=== PATIENT | female | born 1995 | race African-American/Black ===

== ENCOUNTER 2023-08-18 00:38 | Emergency (ER) | payer OTHER ==
[2023-08-18 00:44] VITALS: BMI 37.2
[2023-08-18 03:03] LABS: HEMATOCRIT 34.4 % (32.4-45.2); HEMOGLOBIN 11.5 GM/dL (10.7-15.3); MCH 27.3 pg (25.7-33.7); MCHC 33.4 g/dl (32.0-36.0); MEAN CELL VOLUME 81.9 fl (80-96); MEAN PLT VOLUME 9.1 fl (7.5-11.1); PLATELET COUNT 322 10^3/uL (134-434); RDW 15.4 % (11.6-15.6); WHITE BLOOD COUNT 5.5 K/mm3 (4.0-10.0)
[2023-08-18 03:04] LABS: POTASSIUM 3.7 mmol/L (3.5-5.1)
[2023-08-18 03:06] LABS: CALCIUM 8.8 mg/dL (8.5-10.1)
[2023-08-18 03:07] LABS: ALBUMIN 3.4 g/dl (3.4-5.0); BLOOD UREA NITROGEN 14.5 mg/dL (7-18); MAGNESIUM 1.6 mg/dL (1.8-2.4)
[2023-08-18 03:10] LABS: CREATININE 0.8 mg/dL (0.55-1.3); PHOSPHOROUS 3.7 mg/dL (2.5-4.9)
[2023-08-18 03:11] LABS: BILIRUBIN,TOTAL 0.4 mg/dL (0.2-1); TOT PROT 7.5 g/dl (6.4-8.2)
[2023-08-18] MEDS ORDERED: MAGNESIUM SULFATE IN WATER 2 GM/50 ML IVPB IVPB ONE ×2 (04:06→04:09)
[2023-08-18 05:54] VITALS: BP 128/85; PULSE 73; RESP 18; TEMP 98.5
== END 2023-08-18 05:55 | disposition home or self-care (01) ==
LOC: JER 00:38
PROC: 3E033GC Introduction of Other Therapeutic Substance into Peripheral Vein, Percutaneous Approach (ICD-10-PCS; principal; 2023-08-18)
DX: R00.2 Palpitations (principal)
CPT/HCPCS: 36415; 71046-TC-FY; 80053; 83735; 84100; 84443; 84484; 84703; 85027; 93005; 93010; 99285-25